=== PATIENT | male | born 1985 | race Hispanic/Latino ===

== ENCOUNTER 2024-03-16 10:28 | Emergency (ER) | payer OTHER ==
[~2024-03-16] VITALS: Ht 182.9 cm; Wt 147.4 kg
[2024-03-16 10:30] VITALS: PULSE 104; RESP 18; TEMP 98.4; O2SAT 100
[2024-03-16] MEDS ORDERED: CIPROFLOX-DEXA7.5 ML LEFT EAR (11:00)
== END 2024-03-16 11:00 | disposition home or self-care (01) ==
LOC: EDBD 10:35 → ER 10:35
DX: T16.2XXA Foreign body in left ear, initial encounter (principal); H60.92 Unspecified otitis externa, left ear; E11.9 Type 2 diabetes mellitus without complications; E78.5 Hyperlipidemia, unspecified
CPT/HCPCS: 99282